=== PATIENT | female | born 1980 | race Hispanic/Latino ===

== ENCOUNTER → 2018-01-14 | Outpatient (CLI) | payer OTHER ==
[~2018-01-14] MED LIST: DIATR MEGLU/DIATRIZOATE SODIUM 30 ML BOTTLE ONE; IOPAMIDOL-370 75 ML VIAL IV ONE
== END ==
LOC: RAH 01-13 08:45
PROVIDERS: ATTEND Plastic Surgery
DX: K43.9 Ventral hernia without obstruction or gangrene (principal)
CPT/HCPCS: 74160; Q9967; Q9963

== ENCOUNTER → 2019-01-17 | Outpatient (CLI) | payer OTHER | END | disposition home or self-care (01) | LOC: RAH 10:55 | PROVIDERS: ATTEND Specialist | DX: R92.8 Other abnormal and inconclusive findings on diagnostic imaging of breast (principal) | CPT/HCPCS: 77066 ==

== ENCOUNTER → 2019-06-14 | Outpatient (CLI) | payer OTHER ==
[2019-06-14 17:56] LABS: CREATININE 0.7 mg/dL (0.5-1.5)
== END | disposition home or self-care (01) ==
LOC: LAB 14:59
PROVIDERS: ATTEND Urology
DX: N30.20 Other chronic cystitis without hematuria (principal); N13.30 Unspecified hydronephrosis
CPT/HCPCS: 36415; 82565; 84520

== ENCOUNTER → 2019-06-23 | Outpatient (CLI) | payer OTHER ==
[~2019-06-23] MED LIST changes: -DIATR MEGLU/DIATRIZOATE SODIUM 30 ML BOTTLE ONE; +IOHEXOL-350 75 ML VIAL IV ONE; -IOPAMIDOL-370 75 ML VIAL IV ONE
== END | disposition home or self-care (01) ==
LOC: RAH 08:36
PROVIDERS: ATTEND Urology
DX: N30.20 Other chronic cystitis without hematuria (principal); N13.30 Unspecified hydronephrosis
CPT/HCPCS: 74400; Q9967

== ENCOUNTER → 2021-12-17 | Outpatient (CLI) | payer OTHER | LOC: RAH 13:22 | PROVIDERS: ATTEND Obstetrics & Gynecology | DX: E04.1 Nontoxic single thyroid nodule (principal); N63.10 Unspecified lump in the right breast, unspecified quadrant; N93.8 Other specified abnormal uterine and vaginal bleeding | CPT/HCPCS: 76536; 76641; 76830 ==

== ENCOUNTER → 2022-09-01 | Outpatient (CLI) | payer OTHER | END | disposition home or self-care (01) | LOC: RAH 14:12 | PROVIDERS: ATTEND Obstetrics & Gynecology | DX: Z12.31 Encounter for screening mammogram for malignant neoplasm of breast (principal) | CPT/HCPCS: 77067 ==